=== PATIENT | female | born 1990 | race Caucasian/White ===

== ENCOUNTER 2018-01-23 20:29 | Observation (INO) ==
[2018-01-23 21:13] LABS: Hematocrit 31.1 % (35.3-44.9); Hemoglobin 8.7 g/dL (11.5-15.4); Mean Corpuscular Hemoglobin 20.4 pg (28.0-33.3); Mean Corpuscular Volume 72.8 fL (83.0-100.0); Mean Platelet Volume 10.4 fL (9.4-12.4); Nucleated Red Blood Cells 0.3 /100 WBC (0); Platelet Count 244 K/mcL (140-400); Red Blood Count 4.27 M/mcL (3.82-4.97); Red Cell Distribution Width 20.6 % (11.5-14.5)
[2018-01-23 21:31] LABS: Lymphocytes # 1.9 K/mcL (0.6-4.6); Neutrophils # 17.5 K/mcL (1.6-8.9)
[2018-01-23 21:32] LABS: Hypochromasia Present (Not Present)
[2018-01-23 21:33] LABS: Anisocytosis 2+ (Not Present); Platelet Estimate Normal (Normal)
[2018-01-23 21:36] LABS: BUN/Creatinine Ratio 19 (6-26); Blood Urea Nitrogen 17 mg/dL (6-20); Calcium 8.3 mg/dL (8.6-10.3); Carbon Dioxide 24 mEq/L (23-29); Chloride 103 mEq/L (98-107); Glucose 248 mg/dL (70-105); Osmolality,Calculated 290 (280-300); Sodium 135 mEq/L (136-145); eGFR For Non-African Americans > 60 (> 60)
[2018-01-23 21:37] LABS: Troponin I 0.03 ng/mL (< 0.04)
--- NOTE | 2018-01-23 21:42 | Emergency Department Note ---
Disposition Clinical Impression: Prader-Willi syndrome, Hypoxia Chest pain Qualifiers: Chest pain type: unspecified Qualified Code(s): R07.9 - Chest pain, unspecified Pneumonia Qualifiers: Pneumonia type: due to unspecified organism Laterality: unspecified laterality Lung location: unspecified part of lung Qualified Code(s): J18.9 - Pneumonia, unspecified organism Disposition: Admitted As Inpatient Condition: Fair Time of Disposition: 01:40 Chest Pain HPI - General Chief Complaint: ED Chest Pain Stated Complaint: CP/L Arm Pain Time Seen by Provider: 01/23/18 20:55 Source: patient Limitations: no limitations Vital Signs Reviewed: Yes Nursing Notes Reviewed: Yes - History of Present Illness HPI Narrative: 27-year-old female history of Prader-Willi presents emergency department with her mother with concern of chest pain. The pain started after dinner around 1900 approximately 2 hours prior to evaluation. The pain and sharp in the midsternum. No radiation of pain. Resting makes it better. Moving makes it worse. She denies any shortness of breath. She has diaphoretic. Denies any nausea or vomiting. No prior history of this before. She denies choking on any foods. No family history of cardiac ischemic disease. No history of blood clots cancer hormone use. Patient is overweight due to her genetic disease and has a high tendency to be immobile. No fever cough or congestion or recent illness. Pt complaint: chest pain Severity scale (1-10): 10 - Related Data Previous Rx's Medication Instructions Recorded Omeprazole 20 mg PO DAILY #30 tablet. 03/30/17 Sodium Hypochlorite 0.25% [Dakin's 473 ml MC DAILY #1 solution 03/30/17 (Half-Strength 0.25%)] Allergies Allergy/AdvReac Type Severity Reaction Status Date / Time No Known Allergies Allergy Verified 01/23/18 20:35 All systems ED: reviewed and negative except as stated. Review of Systems: As Per HPI Constitutional: Denies: fever, chills ENT ED: Denies: congestion Cardiovascular: Reports: chest pain Respiratory: Reports: dyspnea. Denies: cough Gastrointestinal: Denies: abdominal pain, nausea, vomiting Musculoskeletal: Denies: back pain Neurological: Denies: headache, weakness, numbness Endocrine: Denies: fatigue Chest Pain PMH - Past Medical History Medical history: Reports: other (Prader-Willi) Surgical history: Reports: no surgical history, other, appendectomy Psychiatric history: Reports: no psych history - Social History Smoking Status: Never smoker Alcohol use: Reports: none Drug use: Reports: none Physical Exam - General Limitations: no limitations General appearance: alert, obese, other (diaphoretic) - Head Head exam: atraumatic, normocephalic, normal inspection - Eye Eye exam: Present: normal appearance, PERRL, EOMI - ENT ENT exam: normal exam, normal oropharynx, mucous membranes moist - Neck Neck exam: Present: normal inspection, full ROM, trachea midline - Chest Chest inspection: Present: normal inspection, symmetric chest wall rise. Absent : tenderness, rash - Respiratory Respiratory exam: Present: normal lung sounds bilaterally. Absent: respiratory distress, wheezes - Cardiovascular Cardiovascular exam: Present: normal rhythm, tachycardia, normal heart sounds - Abdominal Exam Abdominal exam: Present: soft (Obese), Non-Tender, normal bowel sounds. Absent : tenderness, distention, guarding, rebound, rigidity - Extremities Exam Extremities exam: Present: normal inspection, full ROM, pedal edema (chronic lymphedema, left leg is bandaged from ankle to thigh). Absent: tenderness - Neurological Exam Neurological exam: Present: alert, oriented X3 - Skin Skin exam: Present: warm, intact, diaphoresis. Absent: rash, cyanosis Course Course Narrative: Patient is obese and has phenotypic features consistent with Prader-Willi. She presents with chest pain 2 hours prior to arrival. Sharp nonradiating. She is obese. On evaluation she is tachycardic and hypoxic and is currently required to liter nasal cannula supplementation. She is pretty immobilized due to her weight. Cardiac workup initiated with a d-dimer and lactate. Of note she also has chronic lymphedema that she follows up with Dr. Maier every 2 weeks. The mother is not concern for any infection as she is wrapped from the ankle up to the knees. They are content without unwrapping the leg to evaluate for infection as they are confident with wound care management. - Reevaluation(s) Reevaluation #1: Review the patient's labs shows a leukocytosis of 19. She does have chronic stable anemia a .7 this is the best is been in a while. She denies any G.I. bleed symptoms. Her symptoms are slowly improving with time. She however continues to be hypoxic and is requiring nasal cannula oxygen supplementation to liter with a oxygen saturation 94%. Her D dimer was significantly elevated and will require his CT of the chest to evaluate for possible pulmonary embolism. Review for chest x-ray shows findings consistent with possible atypical pneumonia. Given her hypoxia tachycardia a leukocytosis will treat her for pneumonia and await CT of the chess for any additional treatments. Her EKG does not reveal any ischemic changes. Her troponin 0.03. Aspirin will be given. Urinalysis is not consistent with infection it is grossly contaminated and she had to use a bed. Given her obesity. At this time she would benefit admission and further management of her symptoms and hypoxia. Patient and family are in agreement with this plan. Impression is hypoxia, pneumonia, chest pain. - Consultations Consultation #1: Spoke with on-call hospitalist laverne Hall to admit for chest pain and atypical community acquired pneumonia. No further orders at this time Vital Signs Temperature 97.5 F L 01/23/18 20:30 Pulse Rate 110 01/23/18 20:30 Respiratory Rate 20 01/23/18 20:30 Blood Pressure 104/57 01/23/18 20:30 O2 Sat by Pulse Oximetry 97 01/23/18 20:30 Temperature 98.3 F 01/24/18 01:47 Pulse Rate 103 01/24/18 01:47 Respiratory Rate 18 01/24/18 01:47 Blood Pressure 102/65 01/24/18 01:47 O2 Sat by Pulse Oximetry 95 01/24/18 01:47 Oxygen Delivery Oxygen Delivery Room Air Chest Pain - MDM Narrative Medical decision making narrative: Patient was discussed with my attending physician who agrees with ED management and final disposition. They independently evaluated the patient. Please refer to their attestation to this encounter for additional information. This note was generated by LOFT[employer] voice recognition software and as a result grammatical or spelling errors may occur using this program. - Medical Records Medical records reviewed: Yes I reviewed the patient's medical records. - Lab Data Lab results reviewed: Yes I reviewed the patient's lab results. Result diagrams: 01/23/18 20:57 01/23/18 20:57 Lab Results 01/23/18 01/23/18 01/23/18 Range/Units 20:57 20:57 21:20 WBC 19.4 H (4.3-11.1) K/mcL RBC 4.27 (3.82-4.97) M/mcL Hgb 8.7 L (11.5-15.4) g/dL Hct 31.1 L (35.3-44.9) % MCV 72.8 L (83.0-100.0) fL MCH 20.4 L (28.0-33.3) pg MCHC 28.0 L (31.6-35.5) g/dL RDW 20.6 H (11.5-14.5) % Plt Count 244 (140-400) K/mcL MPV 10.4 (9.4-12.4) fL Seg Neutrophils % 74.0 % Band Neutrophils % 16.0 H (0-4) % Lymphocytes % 10.0 % Neutrophils # 17.5 H (1.6-8.9) K/mcL Lymphocytes # 1.9 (0.6-4.6) K/mcL Nucleated RBCs/100 WBC 0.3 H (0) /100 WBC Platelet Estimate Normal (Normal) Hypochromasia Present A (Not Present) Anisocytosis 2+ A (Not Present) D-Dimer 4318 H (0-500) ng/mLFEU Sodium 135 L (136-145) mEq/L Potassium 4.0 (3.5-5.1) mEq/L Chloride 103 (98-107) mEq/L Carbon Dioxide 24 (23-29) mEq/L BUN 17 (6-20) mg/dL Creatinine 0.90 (0.60-1.20) mg/dL Est GFR ( Amer) > 60 (> 60) Est GFR (Non-Af Amer) > 60 (> 60) BUN/Creatinine Ratio 19 (6-26) Glucose 248 H (70-105) mg/dL Calculated Osmolality 290 (280-300) Lactic Acid (0.5-2.2) mmol/L Calcium 8.3 L (8.6-10.3) mg/dL Troponin I 0.03 (< 0.04) ng/mL Urine Color (Yellow) Urine Clarity (Clear) Urine pH (5.0-8.0) pH Units Ur Specific [place] (1.010-1.025) Urine Protein (Neg-Trace) mg/dL Urine Glucose (UA) (Normal) mg/dL Urine Ketones (Negative) mg/dL Urine Blood (Negative) Urine Nitrite (Negative) Urine Bilirubin (Negative) Urine Urobilinogen (Normal) mg/dL Ur Leukocyte Esterase (Negative) Urine Microscopic RBC (0-3) per hpf Urine Microscopic WBC (0-3) per hpf Ur Squamous Epith Cells (None-Few) per lpf Urine Bacteria (None-Few) per hpf Hyaline Casts (None-Few) per lpf Ur Culture Indicated? (NO) Urine Test (Negative) 01/23/18 01/23/18 01/23/18 Range/Units 21:30 22:43 22:43 WBC (4.3-11.1) K/mcL RBC (3.82-4.97) M/mcL Hgb (11.5-15.4) g/dL Hct (35.3-44.9) % MCV (83.0-100.0) fL MCH (28.0-33.3) pg MCHC (31.6-35.5) g/dL RDW (11.5-14.5) % Plt Count (140-400) K/mcL MPV (9.4-12.4) fL Seg Neutrophils % % Band Neutrophils % (0-4) % Lymphocytes % % Neutrophils # (1.6-8.9) K/mcL Lymphocytes # (0.6-4.6) K/mcL Nucleated RBCs/100 WBC (0) /100 WBC Platelet Estimate (Normal) Hypochromasia (Not Present) Anisocytosis (Not Present) D-Dimer (0-500) ng/mLFEU Sodium (136-145) mEq/L Potassium (3.5-5.1) mEq/L Chloride (98-107) mEq/L Carbon Dioxide (23-29) mEq/L BUN (6-20) mg/dL Creatinine (0.60-1.20) mg/dL Est GFR ( Amer) (> 60) Est GFR (Non-Af Amer) (> 60) BUN/Creatinine Ratio (6-26) Glucose (70-105) mg/dL Calculated Osmolality (280-300) Lactic Acid 1.3 (0.5-2.2) mmol/L Calcium (8.6-10.3) mg/dL Troponin I (< 0.04) ng/mL Urine Color Dark Yellow (Yellow) Urine Clarity Cloudy A (Clear) Urine pH 5.0 (5.0-8.0) pH Units Ur Specific [place] > 1.030 H (1.010-1.025) Urine Protein 100 H (Neg-Trace) mg/dL Urine Glucose (UA) Normal (Normal) mg/dL Urine Ketones Trace H (Negative) mg/dL Urine Blood Negative (Negative) Urine Nitrite Negative (Negative) Urine Bilirubin Small H (Negative) Urine Urobilinogen Normal (Normal) mg/dL Ur Leukocyte Esterase Small H (Negative) Urine Microscopic RBC 15-30 H (0-3) per hpf Urine Microscopic WBC 30-50 H (0-3) per hpf Ur Squamous Epith Cells Many H (None-Few) per lpf Urine Bacteria Moderate H (None-Few) per hpf Hyaline Casts Few (None-Few) per lpf Ur Culture Indicated? NO. A (NO) Urine Test Negative (Negative) - Radiology Data Radiology results reviewed: Yes I reviewed the patient's radiology results. Chest X-Ray 01/23/18 21:41 IMPRESSION: Cardiomegaly with pulmonary vascular congestion and ill-defined bilateral perihilar opacity that may reflect mild edema or atypical infection if the patient has fever or leukocytosis. D/ / Edison Canas / Edison Canas Interpreting Provider: Edison Canas Chest CTA 01/23/18 22:12 IMPRESSION: Motion limited study. No convincing evidence of pulmonary embolism or acute pulmonary abnormality. D/ / Suresh Denny MD / Suresh Denny MD Interpreting Provider: Suresh Denny MD - EKG Data EKG attestation: Yes I reviewed and interpreted this EKG. Heart Score - Score History: Slightly Suspicious EKG: Normal Age: Less than 45 Risk Factors: 1-2 risk factors Troponin: 1-3x normal limit HEART Score Total: 2
[2018-01-23] MEDS ORDERED: Isovue-370 500 ML INFUS..BTL IV ONE (22:12)
[2018-01-23 22:55] LABS: Bilirubin,Urine Small (Negative); Blood,Urine Negative (Negative); Clarity,Urine Cloudy (Clear); Color,Urine Dark Yellow (Yellow); Glucose,Urine (UA) Normal (Normal); Ketones,Urine Trace mg/dL (Negative); Leukocyte Esterase,Urine Small (Negative); Nitrite,Urine Negative (Negative); Protein,Urine 100 mg/dL (Neg-Trace); Specific Gravity,Urine > 1.030 (1.010-1.025); Urobilinogen,Urine Normal (Normal)
[2018-01-23 22:57] LABS: Bacteria,Urine Moderate per hpf (None-Few); RBC,Urine 15-30 per hpf (0-3); Squamous Epithelial Cell,Urine Many per lpf (None-Few); WBC,Urine 30-50 per hpf (0-3)
[2018-01-23 23:20] LABS: Hyaline Casts,Urine Few per lpf (None-Few)
[2018-01-24] MEDS ORDERED: Azithromycin 500 MG in D5% in Water 250 ML IVPB ONE (00:21)
[2018-01-24] MEDS ORDERED: cefTRIAXone 1,000 MG in Water for inj. (sterile) 20 ML 10 ML IVP ONE (00:22)
--- NOTE | 2018-01-24 01:17 | Emergency Department Note ---
Disposition Clinical Impression: Chest pain Disposition: Admitted As Inpatient Condition: Fair General Adult HPI - General Chief complaint: ED Chest Pain Stated complaint: CP/L Arm Pain Time Seen by Provider: 01/23/18 20:55 Source: patient Limitations: no limitations Nursing Notes Reviewed: Yes Vital Signs Reviewed: Yes - History of Present Illness Pain Scale: 10 - Related Data Previous Rx's Medication Instructions Recorded Omeprazole 20 mg PO DAILY #30 tablet. 03/30/17 Sodium Hypochlorite 0.25% [Dakin's 473 ml MC DAILY #1 solution 03/30/17 (Half-Strength 0.25%)] Allergies Allergy/AdvReac Type Severity Reaction Status Date / Time No Known Allergies Allergy Verified 01/23/18 20:35 Constitutional: Denies: fever, chills ENT ED: Denies: congestion Cardiovascular: Reports: chest pain Respiratory: Reports: dyspnea. Denies: cough Gastrointestinal: Denies: abdominal pain, nausea, vomiting Musculoskeletal: Denies: back pain Neurological: Denies: headache, weakness, numbness Endocrine: Denies: fatigue Past Medical History - Past Medical History Medical history: Reports: other (Prader-Willi) Surgical history: Reports: no surgical history, other, appendectomy Psychiatric history: Reports: no psych history - Social History Smoking Status: Never smoker Smokeless Tobacco Status: No Alcohol use: Reports: none Drug use: Reports: none Physical Exam - General Limitations: no limitations General appearance: alert, obese, other (diaphoretic) Course Vital Signs Temperature 97.5 F L 01/23/18 20:30 Pulse Rate 110 01/23/18 20:30 Respiratory Rate 20 01/23/18 20:30 Blood Pressure 104/57 01/23/18 20:30 O2 Sat by Pulse Oximetry 97 01/23/18 20:30 Temperature 97.5 F L 01/23/18 20:30 Pulse Rate 88 01/24/18 00:06 Respiratory Rate 20 01/24/18 00:06 Blood Pressure 121/94 01/24/18 00:06 O2 Sat by Pulse Oximetry 94 01/24/18 00:06 Oxygen Delivery Oxygen Delivery Room Air Medical Decision Making - Lab Data Result diagrams: 01/23/18 20:57 01/23/18 20:57 Lab Results 01/23/18 01/23/18 01/23/18 Range/Units 20:57 20:57 21:20 WBC 19.4 H (4.3-11.1) K/mcL RBC 4.27 (3.82-4.97) M/mcL Hgb 8.7 L (11.5-15.4) g/dL Hct 31.1 L (35.3-44.9) % MCV 72.8 L (83.0-100.0) fL MCH 20.4 L (28.0-33.3) pg MCHC 28.0 L (31.6-35.5) g/dL RDW 20.6 H (11.5-14.5) % Plt Count 244 (140-400) K/mcL MPV 10.4 (9.4-12.4) fL Seg Neutrophils % 74.0 % Band Neutrophils % 16.0 H (0-4) % Lymphocytes % 10.0 % Neutrophils # 17.5 H (1.6-8.9) K/mcL Lymphocytes # 1.9 (0.6-4.6) K/mcL Nucleated RBCs/100 WBC 0.3 H (0) /100 WBC Platelet Estimate Normal (Normal) Hypochromasia Present A (Not Present) Anisocytosis 2+ A (Not Present) D-Dimer 4318 H (0-500) ng/mLFEU Sodium 135 L (136-145) mEq/L Potassium 4.0 (3.5-5.1) mEq/L Chloride 103 (98-107) mEq/L Carbon Dioxide 24 (23-29) mEq/L BUN 17 (6-20) mg/dL Creatinine 0.90 (0.60-1.20) mg/dL Est GFR ( Amer) > 60 (> 60) Est GFR (Non-Af Amer) > 60 (> 60) BUN/Creatinine Ratio 19 (6-26) Glucose 248 H (70-105) mg/dL Calculated Osmolality 290 (280-300) Lactic Acid (0.5-2.2) mmol/L Calcium 8.3 L (8.6-10.3) mg/dL Troponin I 0.03 (< 0.04) ng/mL Urine Color (Yellow) Urine Clarity (Clear) Urine pH (5.0-8.0) pH Units Ur Specific [place] (1.010-1.025) Urine Protein (Neg-Trace) mg/dL Urine Glucose (UA) (Normal) mg/dL Urine Ketones (Negative) mg/dL Urine Blood (Negative) Urine Nitrite (Negative) Urine Bilirubin (Negative) Urine Urobilinogen (Normal) mg/dL Ur Leukocyte Esterase (Negative) Urine Microscopic RBC (0-3) per hpf Urine Microscopic WBC (0-3) per hpf Ur Squamous Epith Cells (None-Few) per lpf Urine Bacteria (None-Few) per hpf Hyaline Casts (None-Few) per lpf Ur Culture Indicated? (NO) Urine Test (Negative) 01/23/18 01/23/18 01/23/18 Range/Units 21:30 22:43 22:43 WBC (4.3-11.1) K/mcL RBC (3.82-4.97) M/mcL Hgb (11.5-15.4) g/dL Hct (35.3-44.9) % MCV (83.0-100.0) fL MCH (28.0-33.3) pg MCHC (31.6-35.5) g/dL RDW (11.5-14.5) % Plt Count (140-400) K/mcL MPV (9.4-12.4) fL Seg Neutrophils % % Band Neutrophils % (0-4) % Lymphocytes % % Neutrophils # (1.6-8.9) K/mcL Lymphocytes # (0.6-4.6) K/mcL Nucleated RBCs/100 WBC (0) /100 WBC Platelet Estimate (Normal) Hypochromasia (Not Present) Anisocytosis (Not Present) D-Dimer (0-500) ng/mLFEU Sodium (136-145) mEq/L Potassium (3.5-5.1) mEq/L Chloride (98-107) mEq/L Carbon Dioxide (23-29) mEq/L BUN (6-20) mg/dL Creatinine (0.60-1.20) mg/dL Est GFR ( Amer) (> 60) Est GFR (Non-Af Amer) (> 60) BUN/Creatinine Ratio (6-26) Glucose (70-105) mg/dL Calculated Osmolality (280-300) Lactic Acid 1.3 (0.5-2.2) mmol/L Calcium (8.6-10.3) mg/dL Troponin I (< 0.04) ng/mL Urine Color Dark Yellow (Yellow) Urine Clarity Cloudy A (Clear) Urine pH 5.0 (5.0-8.0) pH Units Ur Specific [place] > 1.030 H (1.010-1.025) Urine Protein 100 H (Neg-Trace) mg/dL Urine Glucose (UA) Normal (Normal) mg/dL Urine Ketones Trace H (Negative) mg/dL Urine Blood Negative (Negative) Urine Nitrite Negative (Negative) Urine Bilirubin Small H (Negative) Urine Urobilinogen Normal (Normal) mg/dL Ur Leukocyte Esterase Small H (Negative) Urine Microscopic RBC 15-30 H (0-3) per hpf Urine Microscopic WBC 30-50 H (0-3) per hpf Ur Squamous Epith Cells Many H (None-Few) per lpf Urine Bacteria Moderate H (None-Few) per hpf Hyaline Casts Few (None-Few) per lpf Ur Culture Indicated? NO. A (NO) Urine Test Negative (Negative) - EKG Data EKG #1 EKG attestation: Yes I reviewed and interpreted this EKG. EKG results narrative: Sinus tachycardia with a rate of 110 with S1 every [address] depressions of V2, V3, V4, V5 and minimal ST elevation of AVR not greater than 1 mm Attestation Statement - Attestation Attestation: I, Juarez Ocampo, examined this patient and my medical decision-making was reviewed with the [employer]UR[employer] ASSEMBLER/PA/Advanced Practice Nurse/Resident Physician. I agree with the documented findings, disposition and treatment plan as described except to the extent set forth below. 27-year-old female presents emergency Department with concerns of chest pain and left arm pain. Patient states symptoms started acutely a few hours prior to arrival. Patient describes the pain as a pressure in the center of her chest that radiates to her left arm. Patient has a history of Prader-Willi syndrome. Patient denies recent trauma, vomiting, diarrhea, abdominal pain, vaginal bleeding, vaginal discharge. Patient was tachycardic and hypoxic on her initial evaluation, this improved with nasal cannula oxygen. She was also diaphoretic on the evaluation. Chest x-ray showed possible pneumonia. Patient had elevated d-dimer on laboratory testing however CTA did not show evidence of PE. We will treat patient for likely pneumonia with her hypoxia and admitted to the hospital.
[2018-01-24] MEDS ORDERED: Naloxone 0.4 MG/ML INJ IVP PRN (02:03)
[2018-01-24] MEDS ORDERED: Aspirin 81 MG TAB.CHEW PO STA (02:03)
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
[2018-01-24] MEDS: *HR* Heparin 5,000 UNIT/ML VIAL SQ SCH ×2 (05:54→16:16)
[2018-01-24 06:28] LABS: Basophils % 0.1 %; Eosinophils % 0.1 %; Hematocrit 30.7 % (35.3-44.9); Hemoglobin 8.4 g/dL (11.5-15.4); Immature Granulocytes % 3.5 % (0-4); Lymphocytes # 0.8 K/mcL (0.6-4.6); Lymphocytes % 5.7 %; Mean Corpuscular HGB Conc 27.4 g/dL (31.6-35.5); Mean Corpuscular Hemoglobin 20.1 pg (28.0-33.3); Mean Corpuscular Volume 73.4 fL (83.0-100.0); Mean Platelet Volume 10.8 fL (9.4-12.4); Monocytes # 0.4 K/mcL (0.0-1.3); Monocytes % 2.7 %; Neutrophils # 12.5 K/mcL (1.6-8.9); Platelet Count 232 K/mcL (140-400); Red Blood Count 4.18 M/mcL (3.82-4.97); Red Cell Distribution Width 20.6 % (11.5-14.5); Segmented Neutrophils % 87.9 %
[2018-01-24 06:44] LABS: BUN/Creatinine Ratio 24 (6-26); Blood Urea Nitrogen 16 mg/dL (6-20); Calcium 8.9 mg/dL (8.6-10.3); Carbon Dioxide 26 mEq/L (23-29); Chloride 105 mEq/L (98-107); Glucose 150 mg/dL (70-105); Osmolality,Calculated 288 (280-300); Phosphorous 3.4 mg/dL (2.7-4.5); Potassium 4.4 mEq/L (3.5-5.1); Sodium 137 mEq/L (136-145); eGFR For Non-African Americans > 60 (> 60)
[2018-01-24 06:45] LABS: Hypochromasia Present (Not Present); Platelet Estimate Normal (Normal)
[2018-01-24 06:46] LABS: Anisocytosis 1+ (Not Present)
[2018-01-24] MEDS: cefTRIAXone 1,000 MG in Water for inj. (sterile) 20 ML 10 ML IVP SCH (10:30)
[2018-01-24] MEDS: Azithromycin 500 MG in D5% in Water 250 ML IVPB SCH (10:30)
[2018-01-24] MEDS: Acetaminophen 325 MG TABLET PO PRN ×2 (11:05→16:16)
[2018-01-24] MEDS: Ibuprofen 400 MG TABLET PO PRN ×2 (13:34→20:52)
--- NOTE | 2018-01-24 13:46 | Event Note ---
Date of Encounter: 01/24/18 Time of Encounter: 09:15 27-year-old female with morbid obesity and Prader Willi syndrome, admitted with upper central chest pain. Seen and examined at bedside. Continues to report retrosternal chest pain, nonradiating. Morbidly obese young female, sitting up in bed, no distress. Chest-S1, S2 heard. Lungs are clear to auscultation. Chest pain-likely related to pneumonia. CT angiogram of chest showed no PE. EKG, telemetry monitoring, serial troponins negative for ACS. Continue current management. Community-acquired pneumonia-suspected. Blood cultures so far negative. Continue IV Rocephin and azithromycin. Improving leukocytosis.
[2018-01-25] MEDS: Acetaminophen 325 MG TABLET PO PRN (00:02)
[2018-01-25] MEDS: *HR* Heparin 5,000 UNIT/ML VIAL SQ SCH (05:27)
[2018-01-25 05:54] LABS: Basophils % 0.3 %; Eosinophils # 0.1 K/mcL (0.0-0.6); Eosinophils % 0.7 %; Hematocrit 31.3 % (35.3-44.9); Hemoglobin 8.4 g/dL (11.5-15.4); Immature Granulocytes % 0.7 % (0-4); Lymphocytes # 1.2 K/mcL (0.6-4.6); Mean Corpuscular HGB Conc 26.8 g/dL (31.6-35.5); Mean Corpuscular Hemoglobin 20.1 pg (28.0-33.3); Mean Corpuscular Volume 75.1 fL (83.0-100.0); Mean Platelet Volume 10.9 fL (9.4-12.4); Monocytes # 0.8 K/mcL (0.0-1.3); Monocytes % 6.1 %; Neutrophils # 11.2 K/mcL (1.6-8.9); Nucleated Red Blood Cells 0.3 /100 WBC (0); Platelet Count 242 K/mcL (140-400); Red Blood Count 4.17 M/mcL (3.82-4.97); Red Cell Distribution Width 20.6 % (11.5-14.5); Segmented Neutrophils % 83.2 %
[2018-01-25 06:27] LABS: Anisocytosis 2+ (Not Present); Hypochromasia Present (Not Present); Polychromasia 1+ (Not Present)
[2018-01-25 06:28] LABS: Platelet Estimate Normal (Normal)
[2018-01-25 06:32] VITALS: BP 115/76
[2018-01-25] MEDS: Azithromycin 500 MG in D5% in Water 250 ML IVPB SCH (09:48)
[2018-01-25] MEDS: cefTRIAXone 1,000 MG in Water for inj. (sterile) 20 ML 10 ML IVP SCH (09:48)
--- NOTE | 2018-01-25 10:54 | Discharge Summary ---
- NOTES TO OUTPATIENT PROVIDER Notes to Outpatient Provider: Pneumonia, hypoxia- on oral antibiotics for 7 days Orders not resulted at time of discharge: Pending orders 01/24/18 02:07 Urinalysis reflex Microscopic [URIN] Routine 01/24/18 02:48 Legionella Antigen [RM] Routine Streptococcal pneumoniae urin antigen [S. Pneumoniae Antigen] [RM] Routine 01/24/18 10:26 Culture,Blood [BC] Stat Date of Encounter: 01/25/18 Time of Encounter: 10:52 - Discharge Diagnosis (1) Cellulitis Priority: Primary Status: Ruled-out Qualifiers: Site of cellulitis: extremity Site of cellulitis of extremity: lower extremity Laterality: left Qualified Code(s): L03.116 - Cellulitis of left lower limb (2) Prader-Willi syndrome Priority: Secondary Status: Chronic (3) Morbid obesity with BMI of 50.0-59.9, adult Priority: Secondary Status: Chronic (4) Chest pain Priority: Primary Status: Acute Qualifiers: Chest pain type: unspecified Qualified Code(s): R07.9 - Chest pain, unspecified (5) Community acquired pneumonia Priority: Primary Status: Acute Qualifiers: Laterality: unspecified laterality Qualified Code(s): J18.9 - Pneumonia, unspecified organism (6) Leg wound, left Priority: Secondary Status: Chronic Qualifiers: Encounter type: sequela Qualified Code(s): S81.802S - Unspecified open wound, left lower leg, sequela (7) Lymphedema Priority: Secondary Status: Chronic Hospital course: Ms. Montoya is a 27 year old female with morbid obesity, chronic lymphedema of B/ L legs and chronic left leg wound, was admitted with chest pain and hypoxia. D- dimer was elevated and she had leukocytosis. CTA chest showed no PE, chest XRay was suspicious for B/L basal infiltrates. She was started on empiric IV antibiotics- Rocephin and Zithromax, supplemental O2. Blood cultures remained negative. SHe improved on this regimen, medically stable for discharge. She has chronic malodorous left leg wound, for which she follows at the Wound care clinic with and was recently evaluated, changed to Dakin's solution; wound care was consulted during this admission and she was started on this regimen. This was explained to her caregiver- mother. She will complete a 7-day course of antibiotics. Discharge discussed with: patient, family, nurse - Time Spent with Patient Total time spent providing and/or coordinating discharge services: Greater than 30 minutes (45 min) - Discharge Medications Prescriptions: Levofloxacin [Levaquin] 750 mg PO DAILY #4 tablet Home Medications: Acetaminophen [Tylenol] 650 mg PO Q6HR PRN tablet 01/25/18 [Rx] Levofloxacin [Levaquin] 750 mg PO DAILY #4 tablet 01/25/18 [Rx] Omeprazole [PriLOSEC] 20 mg PO DAILY capsule. 01/25/18 [Rx] Sodium Hypochlorite 0.25% [Dakin's (Half-Strength 0.25%)] 1 appl TP DAILY bottle 01/25/18 [Rx] Allergies/Adverse Reactions: 3 Allergy/AdvReac Type Severity Reaction Status Date / Time No Known Allergies Allergy Verified 01/24/18 14:01 Date of admission: 01/24/18 01:08 Primary care physician: Brenda Larson Consults: 01/24/18 11:06 Consult to Wound Care [CONS] Routine Reason for Consult: pt sees Dr. [place]. Yeast noted to both legs and Dr. [place] replaced calcium gluconate with a different medication that she has not been able to find yet. Patient also dealing with lymph-edema. Call Completed: No Discharging clinician: Echo Guerra Anticipated date of discharge: 01/25/18 - Constitutional Vitals: Temp Pulse Resp BP Pulse Ox 98.0 F 86 15 115/76 93 01/25/18 06:25 01/25/18 06:25 01/25/18 06:25 01/25/18 06:25 01/25/18 09:59 General appearance: Present: A&O X 3, morbidly obese, pleasant, answers questions appropriately - Cardiovascular Cardiovascular exam: Present: RRR, +S1, +S2. Absent: diastolic murmur, gallop, rubs, systolic murmur - Patient Status Disposition: Home, Self-Care Condition: Fair Functional capacity at discharge: independent ambulation Overall status at discharge: patient is progressing back to baseline - Discharge Instructions Follow Up With: Brenda Larson MD [Primary Care Provider] - 01/30/18 1:45 pm Additional Instructions: F/up with at wound care clinic as scheduled - Diet and Activity Activity: resume usual activities as tolerated Diet: low fat, low cholesterol
--- NOTE | 2018-01-25 15:13 | Electrocardiograph Report ---
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
== END 2018-01-25 16:04 | disposition home or self-care (01) ==
LOC: EMEROO 20:29 → 3BNU 20:29 → SUATTDRO 01-24 02:13
PROVIDERS: ADMIT Internal Medicine; ATTEND Internal Medicine